=== PATIENT | female | born 2000 | race Two or more races ===

== ENCOUNTER → 2025-02-09 | Outpatient (CLI) | payer MEDICAID, SELFPAY ==
[2025-02-08 17:32] LABS: HCG Qualitative,Urine Negative
--- NOTE | 2025-02-09 15:00 | XR_ITS ---
Examination: MRI shoulder,left, without contrast. MRI shoulder, left, post intravenous contrast Shoulder arthrogram Exam date and time:February 09, 2025, 1513 hours. Technique: Multiple axial, sagittal and coronal sections of the shoulder have been obtained. Siemens high-resolution 1.5 Angie, MRI scanner is utilized. Axial fat suppressed sections, TR 2350, TE 18. T1 weighted coronal images, TR 500, TE 15. T2-weighted sagittal fat saturated images, TR 3500, TE 57 T1 weighted sagittal sections, TR 504, TE 13. Images also obtained post 20 cc gadolinium Findings: Irregular soft tissue mass in the subcutaneous tissue anterior to the humeral head, 4.2 x 2.7 x 3.4 cm No osseous involvement Rotator cuff intact No labral tear Long head of the biceps is in the bicipital groove IMPRESSION: Enhancing irregular soft tissue mass in the subcutaneous tissue anterior shoulder 4.2 x 2.7 x 3.4 cm
== END | disposition home or self-care (01) ==
PROVIDERS: PCP Family Medicine
DX: R22.32 Localized swelling, mass and lump, left upper limb (principal); Z32.00 Encounter for pregnancy test, result unknown
CPT/HCPCS: 73223; 81025; A9577